=== PATIENT | male | born 1970 | race Caucasian/White ===

== ENCOUNTER 2021-08-02 06:48 | Day surgery (SDC) | payer OTHER, MEDICAID ==
[~2021-08-02 06:48] MED LIST: CHLORPROMAZINE25 MG PO; COMPAZINE10 MG PO; CROMOLYN S5.2 MG/ACT; DEXAMETHASONE4 MG PO; OLANZAPINE5 MG PO; ONDANSETRON HYDR4 MG; PILOCARPINE PO; PILOCARPINE5 MG PO; TAMSULOSIN HCL0.4 MG PO; TAMSULOSIN0.4 MG PO
[2021-08-02 09:31] VITALS: BP 135/70
== END 2021-08-02 09:15 | disposition home or self-care (01) | DRG 951 ==
LOC: ENDO 06:48
PROVIDERS: ATTEND Surgery
PROC: 0DBN8ZX Excision of Sigmoid Colon, Via Natural or Artificial Opening Endoscopic, Diagnostic (ICD-10-PCS; principal; 2021-08-02)
PROC: 0DBL8ZX Excision of Transverse Colon, Via Natural or Artificial Opening Endoscopic, Diagnostic (ICD-10-PCS; 2021-08-02)
DX: Z12.11 Encounter for screening for malignant neoplasm of colon (principal); D12.3 Benign neoplasm of transverse colon; D12.7 Benign neoplasm of rectosigmoid junction; Z80.8 Family history of malignant neoplasm of other organs or systems

== ENCOUNTER 2022-03-17 21:40 | Emergency (ER) | payer OTHER, MEDICAID ==
[~2022-03-17] VITALS: Ht 170.2 cm; Wt 72.7 kg
[2022-03-17] MEDS ORDERED: BACTRIM DS1 TAB PO (22:00)
[2022-03-17 22:09] VITALS: BP 120/56
== END 2022-03-17 22:09 | disposition home or self-care (01) | DRG 603 ==
LOC: ED 21:40
DX: L03.113 Cellulitis of right upper limb (principal)